=== PATIENT | male | born 1945 | race Caucasian/White ===

== ENCOUNTER 2022-10-25 12:41 | Emergency (ER) | payer MEDICARE ==
--- NOTE | 2022-10-25 14:10 | XRAY ---
Indication: Lightheadedness. Two-dimensional sonogram and color Doppler imaging of the carotid arteries of the neck performed. Comparison: None Examination of the right carotid circulation demonstrates slightly tortuous widely patent common carotid artery. Carotid bulb demonstrates minimal eccentric soft plaquing slightly extending to the origin of the external carotid artery. Proximal internal carotid artery demonstrates very minimal eccentric calcified plaquing. PSV of the CCA is 133 cm/s. PSV of the ICA is 89 cm/s. ICA/CCA ratio is 0.7. Normal antegrade vertebral artery flow. Examination of the left carotid circulation demonstrates widely patent common carotid artery. Carotid bulb demonstrates minimal eccentric calcified plaquing extending into the origin/proximal internal carotid artery. Remaining external carotid artery widely patent. PSV of the CCA is 142 cm/s. PSV of the ICA is 133 cm/s. ICA/CC ratio 0.9. Normal antegrade vertebral artery flow. Incidental minimal nonoccluding thrombi seen in the left jugular and lesser degree left subclavian veins. Impression: 1. Minimal arteriosclerotic plaquing bilaterally as detailed. Velocity measurements and ratios favor less than 50% stenosis on the left. No hemodynamically significant flow limiting stenosis on the right. 2. Incidental nonoccluding thrombi left jugular and left subclavian veins.
--- NOTE | 2022-10-25 14:35 | ERPHSYRPT ---
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 no swelling noted, no edema noted, Physician History: 77 yo WM who had outpt carotid dopplers today was found to have a L jugular/L subclavian DVT. Pt is not taking an anticoagulant at this time and has no h/o DVT/PE. He denies focal weakness/CVA/CAD/NM/central line/port placement/Cancer. He does not smoke. Pt currently denies chest pain/dyspnea. Timing/Duration: today Severity: moderate Modifying Factors: Improves With: nothing Associated Symptoms: denies symptoms Allergies/Adverse Reactions: ibuprofen [From Motrin] Allergy (Verified 10/25/22 13:55) Home Medications: Amlodipine Besylate/Benazepril [Amlodipine-Benazepril 2.5-10] 1 ea DAILY 10/25/22 [History] Hx Tetanus, Diphtheria Vaccination/Date Given: No Hx Influenza Vaccination/Date Given: No Hx Pneumococcal Vaccination/Date Given: No Immunizations Up to Date: Yes Travel Risk - International Travel Have you traveled outside of the country in past 3 weeks: No - Coronavirus Screening Are you exhibiting any of the following symptoms?: No Close contact with a COVID-19 positive Pt in past 14-21 Days: No - Vaccine Status Have you recieved a Covid-19 vaccination: Yes Vis[employer] Washer: Unknown - Vaccination Dates Date of 2cond Vaccination (if applicable): ? Dates if Unknown: ? - Review of Systems Constitutional: No Symptoms Eyes: No Symptoms Ears, Nose, & Throat: No Symptoms Respiratory: No Symptoms Cardiac: No Symptoms Abdominal/Gastrointestinal: No Symptoms Genitourinary Symptoms: No Symptoms Musculoskeletal: No Symptoms Skin: No Symptoms Neurological: No Symptoms Psychological: No Symptoms Endocrine: No Symptoms Hematologic/Lymphatic: No Symptoms Immunological/Allergic: No Symptoms - Past Medical History Cardiac History: Hypertension Musculoskeletal History: Arthritis - Past Surgical History Past Surgical History: Yes Other Surgical History: colonscopy - Social History Smoking Status: Former smoker Exposure to second hand smoke: No Drug Use: none Patient Lives Alone: No - Nursing Vital Signs Nursing Vital Signs: Initial Vital Signs Temperature 97.6 F 10/25/22 14:08 Pulse Rate 84 10/25/22 14:08 Respiratory Rate 18 10/25/22 14:08 Blood Pressure 136/74 10/25/22 14:08 O2 Sat by Pulse Oximetry 98 10/25/22 14:08 Pain Scale Pain Intensity 0 WNL - Physical Exam General Appearance: no apparent distress Eye Exam: PERRL/EOMI, eyes nml inspection Ears, Nose, Throat Exam: normal ENT inspection, TMs normal, pharynx normal, moist mucous membranes Neck Exam: normal inspection, non-tender, supple, full range of motion, No meningismus, No mass, No Brudzinski, No Kernig's, No carotid bruit Respiratory Exam: normal breath sounds, lungs clear, airway intact, No respiratory distress Cardiovascular Exam: regular rate/rhythm, normal heart sounds, normal peripheral pulses, capillary refill <2 sec, No murmur Gastrointestinal/Abdomen Exam: soft, normal bowel sounds, No tenderness Back Exam: normal inspection, normal range of motion, No CVA tenderness, No vertebral tenderness Extremity Exam: normal inspection, normal range of motion Neurologic Exam: alert, oriented x 3, cooperative, automatic folder seamer II-XII nml as tested, normal mood/affect, nml cerebellar function, nml station & gait, sensation nml, No motor deficits, No sensory deficit Skin Exam: normal color, warm, dry, No rash Lymphatic Exam: No adenopathy SpO2 Interpretation: normal SpO2: 98 O2 Delivery: Room Air - Course Nursing assessment & vital signs reviewed: Yes - Radiology Ultrasound Exam Carotid Ultrasound: discussed w/radiologist (L jugular/L subclavian vein DVT/nonoccluding) Ordered Tests: Active Orders 24 hr Category Date Time Status CAROTID BILATERAL [US] Routine Exams 10/25/22 12:47 Completed - Progress Progress Note: 10/25/22 16:19 Nursing note and vital signs reviewed No food or housing insecurities noted Carotid Doppler results reviewed w thrombus in L subclavian/L jugular Pt wo contraindication to anticoagulation Discussed risks/benefits of anticoagulation, including CVA wo anticoagulation and rare intracranial bleed w anticoagulation. Also discussed coumadin vs Xaralto risks and benefits, including monitoring INR w coumadin and difficulty of stopping bleeding w Xaralto. Pt elected to be anticoagulated w Xaralto. GFR 58.8. Pt advised to f/u w PCP STEVE for monitoring. 10/25/22 16:24 Counseled pt/family regarding: diagnosis, need for follow-up, rad results Medical Desision Making - Diagnostic Testing Radiological Interpretation: Reviewed by me - Risk of complications The pt has a mod risk of morbidity or mortality based on: Need for prescription drug management The pt has a high risk of morbidity or mortality based on: Drug therapy requiring intensive monitoring for toxicity - Departure Departure Disposition: Home Clinical Impression: DVT (deep venous thrombosis) Condition: Stable Critical Care Time: No Referrals: SERENA MULLEN NP [Primary Care Provider] - Follow up/PCP as directed Instructions: Deep Vein Thrombosis (DVT) ED Additional Instructions: Start Xaralto twice a day(15mg tablets) Follow up with your family MD WILSON You will need to transition to 20mg once daily after 21 days Avoid any possible traumatic activity Hold pressure if bleeding starts Prescriptions: Rivaroxaban [Xarelto] 15 mg PO BID 21 Days tablet
[2022-10-25 14:53] VITALS: BP 118/64; PULSE 72
[2022-10-25 16:24] VITALS: O2SAT 98
== END 2022-10-25 14:53 | disposition home or self-care (01) ==
LOC: ED 12:41 → RAD 12:41 → EDSTATUS 13:47 → ED 14:53
DX: I82.C12 Acute embolism and thrombosis of left internal jugular vein (principal); I82.B12 Acute embolism and thrombosis of left subclavian vein; R42 Dizziness and giddiness; I10 Essential (primary) hypertension; Z79.01 Long term (current) use of anticoagulants; Z79.899 Other long term (current) drug therapy
CPT/HCPCS: 93880; 99281